=== PATIENT | male | born 1990 | race Caucasian/White ===

== ENCOUNTER 2025-02-02 21:25 | Emergency (ER) | payer BC, SELFPAY ==
--- NOTE | ~2025-02-02 | CT_ITS ---
EXAMINATION: CT abdomen pelvis w con DATE: 02/03/2025 05:01 INDICATION: Right lower quadrant abdominal pain. TECHNIQUE: Computed tomography (CT) of the abdomen and pelvis was performed with 100 mL Omnipaque 350 intravenous contrast. Automated exposure control and iterative reconstruction technique were employed. The dose-length product was 1844.87 mGy-cm. COMPARISON: None. FINDINGS: The visualized portions of the lung bases demonstrate mild atelectasis. No pleural effusion. The heart size is normal. No pericardial effusion. There is a small sliding hiatal hernia. The liver, gallbladder, spleen, pancreas, adrenal glands, and kidneys are normal. There are no dilated loops of bowel. The appendix is normal. There are no pathologically enlarged lymph nodes. There is no free intraperitoneal fluid. There is a right inguinal hernia containing fat. There is mild thoracic and lumbar spondylosis. IMPRESSION: 1. Small sliding hiatal hernia. 2. Right inguinal hernia containing fat. Reviewed, dictated and finalized at location E.
[2025-02-02 21:29] VITALS: BP 155/101; PULSE 104; RESP 20; TEMP 36.7; O2SAT 99
--- NOTE | 2025-02-03 01:49 | ED_ITS ---
HPI - Abdominal Pain General Chief Complaint: Abdominal Pain Stated Complaint: abd pain Time Seen by Provider: 02/03/25 01:24 History of Present Illness HPI narrative: 34-year-old otherwise healthy male with a past medical history of hypertension on metoprolol and history of melanoma status post Keytruda and excision. Patient presents to the emergency department with right-sided groin pain that radiates up to his abdomen for last 4-5 days. Associated nausea without vomiting. No fever chills. No back pain or urinary complaints. No masses felt he describes a dull achy pain in his right groin. Thinks it could have been hernia but denies any traumatic injuries or lifting injuries. No bulges or masses that he can feel. No history of kidney stones, prostate issues or bladder issues to his knowledge. Review of Systems 2 Review of Systems: As reviewed above in HPI Exam 2 Narrative: GENERAL: [Well-appearing, well-nourished, and in no acute distress.] HEAD: [Normocephalic, atraumatic.] EYES: [PERRLA and EOMI.] ENT: Nares clear, no rhinorrhea or epistaxis. Mucous membranes moist. NECK: Supple. CHEST: [Clear to auscultation. No respiratory distress.] HEART: [Regular rate and rhythm]. No murmur heard. [Normal peripheral pulses.] ABDOMEN: Soft and nondistended abdomen, no tenderness to palpation. No rigidity or guarding. No CVA tenderness. No inguinal masses but do appreciate an inguinal hernia defect on the right side with coughing and straining. No bulging masses. No testicular deformity or tenderness. No penile injury or tenderness. EXTREMITIES: Normal range of motion. [No edema.] SKIN: Warm, dry, no rash. NEURO: [No focal deficits]. Alert and oriented [x3.] PSYCH: [Normal mood and affect.] Course Vital Signs Vital signs: Vital Signs Temperature 36.7 C 02/02/25 21: Pulse Rate 104 H 02/02/25 21: Respiratory Rate 20 02/02/25 21: Blood Pressure 155/101 H 02/02/25 21:29 Pulse Oximetry 99 02/02/25 21:29 Oxygen Delivery Room Air 02/02/25 21:29 Temperature 36.7 C 02/02/25 21:29 Pulse Rate 86 02/03/25 07:03 Respiratory Rate 18 02/03/25 07:03 Blood Pressure 150/95 H 02/03/25 07:03 Pulse Oximetry 100 02/03/25 07:03 Oxygen Delivery Room Air 02/02/25 21:29 MDM - Abdominal Pain MDM Narrative Medical decision making narrative: 34-year-old otherwise healthy male with a past medical history of hypertension on metoprolol and history of melanoma status post Keytruda and excision. Patient presents to the emergency department with right-sided groin pain that radiates up to his abdomen for last 4-5 days. Associated nausea without vomiting. No fever chills. No back pain or urinary complaints. No masses felt he describes a dull achy pain in his right groin. Thinks it could have been hernia but denies any traumatic injuries or lifting injuries. No bulges or masses that he can feel. No history of kidney stones, prostate issues or bladder issues to his knowledge. Soft and nondistended abdomen, no tenderness to palpation. No rigidity or guarding. No CVA tenderness. No inguinal masses but do appreciate an inguinal hernia defect on the right side with coughing and straining. No bulging masses. No testicular deformity or tenderness. No penile injury or tenderness. Patient is overall very well-appearing. Afebrile here. Minor tachycardia. Minor hypertension. Differential includes intermittent hernia, appendicitis, kidney stone, musculoskeletal strain. CBC, CMP, urinalysis lactic acid obtained. Patient is not any pain at this time. No signs of peritonitis. Does not any medications at this juncture. CT scan shows no acute inflammatory obstructive process. Normal appendix. Small hiatal hernia. Electrolytes unremarkable. No leukocytosis. Urinalysis unremarkable. Safe for discharge with surgery referral for his right-sided inguinal hernia that is reducible. Medical Records Attestation: I reviewed the patient's medical records. Lab Data Attestation: I reviewed the patient's lab results. 02/03/25 02:27 02/03/25 02:27 Labs: Lab Results 02/03/25 02/03/25 Range/Units 02:27 02:37 WBC 8.0 (4.5-10.0) K/mm3 RBC 5.11 (4.6-6.20) M/mm3 Hgb 14.5 (14.0-18.0) g/dL Hct 42.9 (42.0-52.0) % MCV 84.0 (80-100) fl MCH 28.4 (26-34) pg MCHC 33.8 (32-36) g/dl RDW 12.8 (11.5-14.5) % Plt Count 198 (150-375) k/mm3 MPV 10.6 H (7.4-10.4) fl Immature Gran % (Auto) 0.3 (0-0.5) % Neut % (Auto) 67.5 (45.5-73.1) % Lymph % (Auto) 22.4 (18.3-44.2) % [place] % (Auto) 7.0 (2.6-8.5) % Eos % (Auto) 2.0 (0-4.4) % Baso % (Auto) 0.8 (0.2-1.2) % Lymph # (Auto) 1.79 (0.9-3.2) K/mm3 [place] # (Auto) 0.6 (0.1-0.6) K/mm3 Eos # (Auto) 0.2 (0-0.3) K/mm3 Baso # (Auto) 0.1 (0.0-0.1) K/mm3 Abs Immat Gran (auto) 0.02 (0.00-0.031) K/mm3 Absolute Neuts (auto) 5.4 (1.3-6.7) K/mm3 Absolute Nucleated RBC 0.000 (0.0-0.012) K/mm3 Nucleated RBC % 0.0 (0.0-0.2) % Sodium 135 L (137-145) mmol/L Potassium 4.1 (3.4-5.0) mmol/L Chloride 101 (98-107) mmol/L Carbon Dioxide 27 (22-30) mmol/L Anion Gap 7 (4-12) mmol/L BUN 13 (9-20) mg/dL Creatinine 1.15 (0.7-1.3) mg/dL Estim Creat Clear Calc 129 ml/min Estimated GFR > 60 (59 - ) Glucose 106 (65-110) mg/dL Lactic Acid 0.8 (0.7-2.0) mmol/L Calcium 8.6 (8.4-10.2) mg/dL Total Bilirubin 0.7 (0.2-1.3) mg/dL AST 22 (17-59) U/L ALT 27 (6-50) U/L Alkaline Phosphatase 71 (38-126) U/L Total Protein 7.3 (6.3-8.2) g/dL Albumin 4.1 (3.5-5.1) g/dL Urine Color Yellow (Yellow) Urine Appearance Clear (Clear) Urine pH 6.0 (5.0-9.0) Ur Specific [place] 1.019 (1.001-1.035) Urine Protein Negative (Negative) mg/dL Urine Glucose (UA) Negative (Negative) mg/dL Urine Ketones Negative (Negative) mg/dL Ur Blood (Man) Negative (Negative) Urine Nitrate Negative (Negative) Urine Bilirubin Negative (Negative) Urine Urobilinogen 1.0 (<2.0) mg/dL Leukocyte Esterase Rfl Negative (Negative) JOSHUA/UL Imaging Data Attestation: I personally reviewed and interpreted this imaging study as follows: My impression: No obstruction or inflammatory process. Radiologist's impression: ITS Impressions Abdomen/Pelvis CT 02/03/25 07:04 IMPRESSION: 1. Small sliding hiatal hernia. 2. Right inguinal hernia containing fat. Discharge Plan Discharge Clinical Impression: Reducible right inguinal hernia, Abdominal pain Patient Disposition: Home Condition: Stable Instructions: Antibiotic Form, Inguinal Hernia (ED) Additional Instructions: Your CT scan shows no inflammatory or obstructive process. Normal appendix. Your examination does sound consistent with an inguinal hernia given the hernia defect that we were able to palpate but no evidence of any incarceration or strangulation and no protrusion at this time. If this is recurrent issue were causing examined pains or difficulties you can benefit from a general surgery referral evaluation for elective repair. We have provided you a referral. Take Tylenol and ibuprofen for any aches or pains. Return with any worsening pain, protruding mass, skin discoloration, difficulty tolerating oral intake or not able to use the restroom. Patient Language: Faroese Follow-up/Referrals: Samantha Fitzpatrick MD [Physician, General Surgery] - 1 Week Referral Note: Intermittent right inguinal hernia, reduced UNKNOWN,DOCTOR [Primary Care Provider] Time of Disposition: 06:37
--- OUTSIDE RECORDS SUMMARY | 2025-02-03 01:56 | XMS_ITS | Clinical Summary ---
Author Organization [facility] Address [address] [place] [phone] Phone Care Team Providers Care Hardwood Finisher Name Role Phone (Excluded Provider) Melvin Valdez MD Primary Ca re Provider Allergies No known active allergies Medications LISINOPRIL ORAL Take by mouth. Active Active Problems No known active problems Family History Relation Name Status Comments Father Alive Mother Alive Social History Tobacco Use Types Packs/Day Years Used Date Smoking Tobacco: Never Smokeless Tobacco: Current Chew Alcohol Use Standard Drinks/Week Comments No 0 (1 standard drink = 0.6 oz pur e alcohol) Sex and Gender Information Value Date Recorded Sex Assigned at Not on file Legal Sex Male 5:01 AM FACETER Gender Identity Not on file Sexual Orientation Not on file Last Filed Vital Signs Vital Sign Reading Time Taken Comments Blood Pressure 142/87 09/27/2013 5:38 PM CDT Pulse 98 09/27/2013 5:38 PM CDT Temperature 36.8 C (98.3 F) 09/27/2013 5:38 PM CDT Respiratory Rate 21 09/27/2013 5:38 PM CDT Oxygen Saturation 98% 09/27/2013 5:38 PM CDT Inhaled Oxygen Concentration - - Weight 126.1 kg (278 lb) 09/27/2013 5:38 PM CDT Height 188 cm (6' 2) 09/27/2013 5:38 PM CDT Body Mass Index 35.69 09/27/2013 5:38 PM CDT Plan of Treatment Health Maintenance Due Date Last Done Comments DTAP/TDAP/TD VACCINES (1 - Tdap) 08/19/2011 HEPATITIS B VACCINES (1 of 3 - 19+ 3-dose series) 05/2011 HPV VACCINES (1 - 3-dose SCDM series) 08/19/2019 INFLUENZA VACCINE (#1) 2024 Care Teams Hardwood Finisher Relationship Specialty Start Date End Date (Excluded Provider) Melvin Valdez MD [address] [place] [phone] PCP - General 04/05/15
--- OUTSIDE RECORDS SUMMARY | 2025-02-03 01:56 | XMS_ITS | Clinical Summary ---
Author Organization [facility] Address [address] [place] [address] Care Team Providers Care Recreation Therapist Name Role Phone Dudley Paulino MD Primary Care Provider Amanda Giron TEMPORARY DATA ENTRY CLERK-DROP FORGE HAND Unavailable [phone] Tania Peguero MD Unavailable [phone] Amanda Giron TEMPORARY DATA ENTRY CLERK-DROP FORGE HAND Unavailable [phone] Source Comments [facility],non-owned Affiliates and Associated Physician Practices is amultiple site organization consisting of ambulatory clinics and hospital sitesin [place], [place], [place] and [place]. This disclosure is being madepursuant to the Care Everywhere program and may not contain all information available regarding this patient. Last updated 18.[facility] Allergies Active Allergy Reactions Criticality Noted Date Comments Contrast-Gadolinium Agents F or Mri Nausea and/or Vomiting 09/10/2023 Medications * Be aware that medications may not be up to date on this document. Alwaysverify current medications with the patient. omeprazole (PriLOSEC) 20 MG capsule Take 1 (one) capsule by mouth daily before breakfast Active prochlorperazin e (Compazine) 10 MG tablet Take 1 (one) tablet by mouth every 6 hours as needed for Nausea/Vomitin g 30 tablet 2 4 Active ondansetron (Zofran) 8 MG tablet Take 1 (one) tablet by mouth every 8 hours as needed for Nausea/Vomitin g 30 tablet 2 4 Active metoprolol succinate XL 24hr (Toprol XL) 50 MG tablet Take 1 (one) tablet by mouth once daily 90 tablet 2 4 Active predniSONE (Deltasone) 5 MG tablet Take 1 (one) tablet by mouth once daily 90 tablet 1 5 Active Active Problems Problem Noted Date Diagnosed Date Adrenal insufficiency 07/28/2024 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 Cancer Staging:Clinical stage from 08/24/2023:Stage IIC(cT4b, cN0, cM0) - Signed by Tania Peguero MD on 08/24/2023 Essential hypertension 02/19/2015 Shoulder pain 01/29/2009 Acute pharyngitis 01/12/2008 Overview (01/12/2008): 05-25-05 Headache 12/28/2007 Overview (02/24/2015): 07/04/2003, 02/03/2005, 03/09/2005 GERD (gastroesophageal reflux disease) 8 Overview (12/28/2007): 02/03/2005, 03/09/2005 Morbid obesity 12/28/2007 Overview (12/28/2007): 03/09/2005 Resolved Problems Problem Noted Date Diagnosed Date Resolved Date GERD (gastroesophageal reflux disease) 04/01/2024 Hypertension, essential 03/19 Encounters Date Type Department Care Team Description 12/15/2024 11:00 AM CDT Office Visit [address] [address] Tania Peguero MD Malignant melanoma of left shoulder (HCC) (Primary Dx); Encounter to discuss test results; Low serum cortisol level 12/15/2024 Orders Only [address] [address] Tania Peguero MD Malignant melanoma of left shoulder (HCC) 12/07/2024 Orders Only [facility] [address] [facility], [address] [address] Tania Peguero MD Malignant melanoma of left shoulder (HCC) from Last 3 Months Immunizations Immunization Administration Dates Next Due DTaP VACCINE IM (6wk-6yrs) 11/16/1997,,04/21/1993, 3,1992 HEP A PEDS 2 DOSE 11/21/2008,01/06/2008 HEP B VACCINE, PED/ADOL 04/21/1993,1992, HIB BOOSTER 06/01/1996,03/11/1993,1992 MENINGOCOCCAL ACWY (MCV4P) VAC IM 01/06/2008 MMR 11/16/1997,09/02/1993 POLIO IPV 11/16/1997, 7,03/11/1993, 3 TDAP (7yrs+) 12/28/2007 VARICELLA 06/01/1996 Family History Medical History Relation Name Comments Diabetes Father Hypercholesterolemia Father Hypertension Father Migraine Father Stroke Father Heart Failure Paternal Grandfather Heart Failure Paternal Grandmother Relation Name Status Comments Father Alive Paternal Grandfather Paternal Grandmother Social History Tobacco Use Types Packs/Day Years Used Date Smoking Tobacco: Never Smokeless Tobacco: Current Chew Tobacco Cessation:Ready to Q uit: Not Asked; Counseling Given: Not Answered Alcohol Use Standard Drinks/Week Comments Yes 0 (1 standard drink = 0.6 oz pur e alcohol) occasional AUDIT-C Answer Date Recorded Q1: How often do you have a drink containing alc ohol? Never 08/17/2023 Average Number of Drinks Not on file 024 Frequency of Binge Drinking Not on file 07/20 PHQ-2 Answer Date Recorded Patient Health Questionnaire-2 Score 0 12/15/2024 Hunger Vital Sign Answer Date Recorded Within the past 12 months, y ou worried that your food would run out before you got the money to buy more. Never true 08/20/19 24 Within the past 12 months, t he food you bought just didn't last and you didn't have money to get more. Never true 08/20/2023 Sex and Gender Information Value Date Recorded Sex Assigned at Male 04/25/2024 12:43 PM ETIOLOGY TEACHER Legal Sex Male 4:49 AM ETIOLOGY TEACHER Gender Identity Not on file Sexual Orientation Not on file Last Filed Vital Signs Vital Sign Reading Time Taken Comments Blood Pressure 128/84 12/15/2024 11:29 AM CDT Pulse 79 12/15/2024 11:29 AM CDT Temperature 36.6 C (97.9 F) 12/15/2024 11:29 AM CDT Respiratory Rate 16 12/15/2024 11:2 9 AM CDT Oxygen Saturation 98% 12/15/2024 11: 29 AM CDT Inhaled Oxygen Concentration - - Weight 159.5 kg (351 lb 9.6 oz) 025 11:29 AM CDT Height 185.4 cm (6' 1) 09/01/2024 8:51 AM CDT Body Mass Index 46.39 09/01/2024 8:51 AM CDT Plan of Treatment Upcoming Encounters Date Type Department Care Team (Late st Contact Info) Description 02/15/2025 11:15 AM CDT Office Visit [facility] - Endocrinology [address] [place] [phone] Kelly Mariano MD [address] [place] [phone] 04/06/2025 10:00 AM ETIOLOGY TEACHER Documentation [facility] [address] [place] [phone] 04/06/2025 10:15 AM ETIOLOGY TEACHER Office Visit [facility] [address] [place] [address] Tania Peguero MD [address] [place] [phone] Health Maintenance Due Date Last Done Comments HIV SCREENING 08/19/2007 HEPATITIS C SCREENING 08/14/2010 DTAP/TDAP/TD VACCINES (7 - Td or Tdap) 12/27/2017 12/28/2007, 11/16/1997, 06/01/1996, Additional history exists HPV VACCINE (1 - 3-dose SCDM series) 08/19/2019 COVID-19 VACCINE ( - season) 2024 INFLUENZA VACCINE (#1) 2024 ZOSTER VACCINE (1 of 2) 2042 HEPATITIS B VACCINE Completed 04/21/1993, 1992, 1992 HIB VACCINE Completed 06/01/1996, 02/18, 1992 MENINGOCOCCAL GROUPS A/C/Y/W VACCINE Aged Out 01/06/2008 No longer eligible based on patient's age to complete this topic DEPRESSION SCREENING Completed 04/27/2024, 08/20/19 24 MENINGOCOCCAL (Group B) VACCINE SHARED DECISION-MAKING Aged Out No longer eligible based on patient's age to complete this topic PNEUMOCOCCAL VACCINE Aged Out No long er eligible based on patient's age to complete this topic Procedures Procedure Name Priority Date/Time Associated Diagnosis Comments CBC W AUTO DIFFERENTIAL (CANCER CARE) Routine 12/15/2024 10:45 AM CDT Malignant melanoma of left shoulder (HCC) COMPREHENSIVE METABOLIC PANEL Routine 12/15/2024 10:45 AM CDT Malignant melanoma of left shoulder (HCC) from Last 3 Months Results * CBC W AUTO DIFFERENTIAL (CANCER CARE) (12/15/2024 10:45 AM CDT) WBC 6.1 4.4 - 10.7 x10E9/L 12/15/2024 10:52 AM CDT [facility] Neutrophils % 61.0 44.0 - 73.0 % 12/15/2024 10:52 AM CDT [facility] Lymphocytes % 28.6 20.0 - 43.0 % 12/15/2024 10:52 AM CDT [facility] Monocytes % 7.4 5.0 - 13.0 % 12/15/2024 10:52 AM CDT [facility] Eosinophils % 2.3 0.0 - 6.0 % 12/15/2024 10:52 AM CDT [facility] Basophils % 0.7 0.0 - 2.0 % 12/15/2024 10:52 AM CDT [facility] Neutrophil Absolute 3.73 2.01 - 7.14 x10E9/L 12/15/2024 10:52 AM CDT [facility] Lymphocytes Absolute 1.75 1.07 - 3.94 x10E9/L 12/15/2024 10:52 AM CDT [facility] Monocytes Absolute 0.45 0.26 - 1.07 x10E9/L 12/15/2024 10:52 AM CDT [facility] Eosinophils Absolute 0.14 0 - 0.47 x10E9/L 12/15/2024 10:52 AM CDT [facility] Basophils Absolute 0.04 0 - 0.08 x10E9/L 12/15/2024 10:52 AM CDT [facility] RBC 5.26 3.80 - 5.40 x10E12/L 12/15/2024 10:52 AM CDT [facility] Hemoglobin 15.2 12.0 - 17.6 gm/dL 12/15/2024 10:52 AM CDT [facility] Hematocrit 43.8 35.2 - 51.7 % 12/15/2024 10:52 AM CDT [facility] MCV 83.3 80.7 - 98.3 fl 12/15/2024 10:52 AM CDT [facility] MCH 28.9 26.7 - 34.0 pg 12/15/2024 10:52 AM CDT [facility] MCHC 34.7 30.8 - 35.9 gm/dL 12/15/2024 10:52 AM CDT [facility] RDW-CV 12.8 12.1 - 14.9 % 12/15/2024 10:52 AM CDT [facility] Platelet Count 214 153 - 416 x10E9/L 12/15/2024 10:52 AM CDT [facility] MPV 10.3 9.4 - 12.9 fl 12/15/2024 10:52 AM CDT [facility] Blood BLOOD SPECIMEN / Unknown 12/15/2024 10:45 AM CDT 12/15/2024 10:45 AM CDT us Tania Peguero MD LAB - HEMATOLOGY ORDERABLES Final Result [facility] [address] [address], [facility] * (ABNORMAL) COMPREHENSIVE METABOLIC PANEL (12/15/2024 10:45 AM CDT) Glucose 112(H) 70 - 99 mg/dL [facility] ACCOUNT BILL BUN 13 5.3 - 18.7 mg/dL [facility] ACCOUNT BILL Creatinine 1.08 0.72 - 1.25 mg/dL [facility] ACCOUNT BILL eGFR by CKD-EPI >90 >=90 mL/min/1.7 3 m2 [facility] ACCOUNT BILL Comment: Estimated Glomerular Filtration Rate (eGFR) calculated using the CKD-EPI Creatinine Equation (2020), per the [employer] and [place] [employer]ph[employer] recommend ations. Sodium 139 136 - 145 mmol/L [facility] ACCOUNT BILL Potassium 4.2 3.5 - 5.1 mmol/L [facility] ACCOUNT BILL Chloride 108(H) 98 - 107 mmol/L [facility] ACCOUNT BILL CO2 25 22 - 29 mmol/L [facility] ACCOUNT BILL Calcium 9.2 8.4 - 10.4 mg/dL [facility] ACCOUNT BILL Protein Total 7.3 6.4 - 8.3 gm/dL [facility] ACCOUNT BILL Albumin 4.3 3.1 - 4.5 gm/dL [facility] ACCOUNT BILL Bilirubin Total 0.5 0.2 - 1.2 mg/dL [facility] ACCOUNT BILL Alkaline Phosphatase 73 40 - 150 U/L [facility] ACCOUNT BILL AST 20 10 - 48 U/L [facility] ACCOUNT BILL ALT 34 6 - 57 U/L [facility] ACCOUNT BILL Blood BLOOD SPECIMEN / Unknown 12/15/2024 10:45 AM CDT 12/15/2024 Comment:Blood Release to pat i Narrative [facility] ACCOUNT BILL - 12/15/2024 3:10 PM CDT Performed at: [address] [place] [address] [address] [facility] , [place], [place] [id number] Distance Learning Program Coordinator: Esdras Nava MD, Phone: [phone] us Tania Peguero MD LAB - CHEMISTRY ORDERABLES Final Result [facility] ACCOUNT BILL [address] [place] [phone] from Last 3 Months Insurance [employer] Care Teams Recreation Therapist Relationship Specialty Start Date End Date Dudley Paulino MD PCP - General Internal Medicine 07/21/16 Amanda Giron APRN-DROP FORGE HAND [address] [place] [address] [place] [phone] PCP - Attributed-[employer] 05/20/24 Amanda Giron APRN-DROP FORGE HAND [address] [place] [id number] Nurse Practitioner Nurse Practitioner Adult Health 08/18/23 Tania Peguero MD [address] [place] [address] [place] [phone] Hematology and Oncology 08/18/23
[2025-02-03 02:42] LABS: Hematocrit 42.9 % (42.0-52.0); Hemoglobin 14.5 g/dL (14.0-18.0); Immature Granulocyte Percent A 0.3 % (0-0.5); Lymphocytes Absolute Auto 1.79 K/mm3 (0.9-3.2); Mean Corpuscular HGB Conc 33.8 g/dl (32-36); Mean Corpuscular Hemoglobin 28.4 pg (26-34); Mean Corpuscular Volume 84.0 fl (80-100); Nucleated Red Blood Cells Absolute Auto 0.000 K/mm3 (0.0-0.012); Nucleated Red Blood Cells Perc 0.0 % (0.0-0.2); Platelet Count Result 198 k/mm3 (150-375); Red Blood Count 5.11 M/mm3 (4.6-6.20); White Blood Count 8.0 K/mm3 (4.5-10.0)
[2025-02-03 02:45] LABS: Add Urine Microscopic? NO; Appearance Urine Clear (Clear); Glucose Urine UA Negative (Negative); Leukocyte Esterase Ur Negative LEU/UL (Negative); Nitrate Urine Negative (Negative); Specific Grav Ur 1.019 (1.001-1.035)
[2025-02-03 02:47] LABS: Alanine Aminotransferase 27 U/L (6-50); Albumin Level 4.1 g/dL (3.5-5.1); Alkaline Phosphatase 71 U/L (38-126); Anion Gap 7 mmol/L (4-12); Aspartate Amino Transferase 22 U/L (17-59); Bilirubin,Total 0.7 mg/dL (0.2-1.3); Blood Urea Nitrogen 13 mg/dL (9-20); Calcium 8.6 mg/dL (8.4-10.2); Carbon Dioxide 27 mmol/L (22-30); Chloride 101 mmol/L (98-107); Estimated CRCL calculation 129 ml/min; Estimated Glomerular Filt Rate > 60; Glucose 106 mg/dL (65-110); Potassium 4.1 mmol/L (3.4-5.0); Sodium 135 mmol/L (137-145); Total Protein 7.3 g/dL (6.3-8.2)
[2025-02-03 07:03] VITALS: BP 150/95; PULSE 86; RESP 18; O2SAT 100
== END 2025-02-03 07:03 | disposition home or self-care (01) ==
PROVIDERS: Emergency Provider Student in an Organized Health Care Education/Training Program
DX: K40.90 Unilateral inguinal hernia, without obstruction or gangrene, not specified as recurrent (principal); I10 Essential (primary) hypertension; Z85.820 Personal history of malignant melanoma of skin; K44.9 Diaphragmatic hernia without obstruction or gangrene
CPT/HCPCS: 36415; 74177; 80053; 81003; 83605; 85025; 99284; Q9967